=== PATIENT | female | born 1995 ===

== ENCOUNTER 2023-05-11 09:10 | Outpatient (RCR) | payer OTHER, SELFPAY ==
[2023-05-11 09:38] VITALS: BP 123/77
[2023-05-11] MEDS: TYLENOL 650 MG PO (09:48)
[2023-05-11] MEDS: VENOFER 110 MG IV (09:49)
[2023-05-11] MEDS: BENADRYL 25 MG PO (09:49)
[2023-05-11 11:04] VITALS: BP 129/81
== END 2023-06-07 23:59 | disposition home or self-care (01) ==
LOC: OID 09:10
PROVIDERS: ATTENDING PHYSICIAN Psychiatry & Neurology Neurology; FAMILY PHYSICIAN Family Medicine
DX: R79.0 Abnormal level of blood mineral (principal)
CPT/HCPCS: 96365; J1756

== ENCOUNTER → 2023-06-26 11:37 | Outpatient (REF) | payer OTHER, SELFPAY | LOC: HWRAD 11:37 | PROVIDERS: ATTENDING PHYSICIAN Otolaryngology Otolaryngology/Facial Plastic Surgery; FAMILY PHYSICIAN General Practice | DX: J32.0 Chronic maxillary sinusitis (principal) | CPT/HCPCS: 70486 ==

== ENCOUNTER 2023-08-31 12:02 | Outpatient (RCR) | payer OTHER, SELFPAY | END 2023-08-31 23:59 | disposition home or self-care (01) | LOC: RPT 12:02 | PROVIDERS: ATTENDING PHYSICIAN Otolaryngology Otolaryngology/Facial Plastic Surgery | DX: H81.12 Benign paroxysmal vertigo, left ear (principal); Z73.6 Limitation of activities due to disability | CPT/HCPCS: 97112; 97162 ==

== ENCOUNTER → 2024-03-19 09:56 | Outpatient (REF) | payer OTHER, SELFPAY | LOC: HWRAD 09:56 | PROVIDERS: ATTENDING PHYSICIAN Chiropractor; FAMILY PHYSICIAN General Practice | DX: M54.2 Cervicalgia (principal); M54.6 Pain in thoracic spine; M54.50 Low back pain, unspecified | CPT/HCPCS: 72050; 72072; 72110 ==

== ENCOUNTER → 2024-08-28 09:15 | Outpatient (REF) | payer OTHER, SELFPAY | LOC: HWRAD 09:15 | PROVIDERS: ATTENDING PHYSICIAN Otolaryngology; FAMILY PHYSICIAN General Practice | DX: J32.4 Chronic pansinusitis (principal) | CPT/HCPCS: 70486 ==